=== PATIENT | male | born 1990 | race Caucasian/White ===

== ENCOUNTER 2021-07-16 19:12 | Emergency (ER) | payer BC ==
[2021-07-16 19:50] LABS: HEMOGLOBIN 14.6 gm/dl (14.0-17.5); RED BLOOD COUNT 4.45 M/UL (4.20-5.50); WHITE BLOOD COUNT 9.4 K/UL (4.5-11.0)
[2021-07-16 20:34] LABS: BUN/CREATININE RATIO 15 (0-10)
[2021-07-16] MEDS ORDERED: IMITREX50 MG PO (21:40)
== END 2021-07-16 21:59 | disposition home or self-care (01) ==
LOC: ER1 19:12
PROVIDERS: Physician Assistant
DX: H53.121 Transient visual loss, right eye (principal)
CPT/HCPCS: 70496; 80053; 85025; 85652; 86140; 96374; 96375; 99284; J1885; J2405; Q9967

== ENCOUNTER 2021-07-28 02:51 | Emergency (ER) | payer BC ==
[~2021-07-28 02:51] MED LIST: IMITREX50 MG PO
[2021-07-28 03:47] LABS: HEMOGLOBIN 14.8 gm/dl (14.0-17.5); RED BLOOD COUNT 4.5 M/UL (4.20-5.50); WHITE BLOOD COUNT 8.9 K/UL (4.5-11.0)
[2021-07-28 04:07] LABS: BUN/CREATININE RATIO 18 (0-10)
== END 2021-07-28 10:35 | disposition short-term general hospital (02) ==
LOC: ER1 02:51
PROVIDERS: Student in an Organized Health Care Education/Training Program
DX: I63.012 Cerebral infarction due to thrombosis of left vertebral artery (principal); Z20.822 Contact with and (suspected) exposure to COVID-19
CPT/HCPCS: 70450; 70496; 70498; 71045; 80053; 82550; 82553; 84484; 85025; 85610; 85730; 96374; 99285; J1644; Q9967; U0002